=== PATIENT | female | born 1935 | race Caucasian/White ===

== ENCOUNTER 2020-07-03 21:45 | Emergency (ER) | payer MEDICARE, SELFPAY ==
[~2020-07-03] VITALS: Ht 160 cm; Wt 66.7 kg
--- NOTE | 2020-07-03 21:53 | NUR ---
Placed in room 06 . Placed on monitoring coordinator, blood pressure machine and pulse oximeter. To gown for exam. Side rails up.
--- NOTE | 2020-07-03 21:54 | NUR ---
Came in ER this 84 year old female brought by BLS paramedics from [facility], [facility], breathing spontaneously at room air, not in distress noted. With chief complaints of left hip pain an hour ago due to mechanical fall, she slipped in the kitchen tile while walking. Known with Diabetes on Medication. No known allergy. Safety measures in place and ccontinue monitor
[2020-07-03 21:55] VITALS: BP_SYST 183
--- NOTE | 2020-07-03 21:55 | NUR ---
Seen and examined by Dr. Hall, ER Attending, orders carried out
[2020-07-03] MEDS ORDERED: MORPHINE 4 MG/ML INJ. SYRINGE IM ONE (22:00)
[2020-07-03] MEDS ORDERED: FURO-150 PO (22:21)
[2020-07-03] MEDS ORDERED: CYM30 PO (22:21)
[2020-07-03] MEDS ORDERED: ZINC100T2 PO (22:21)
[2020-07-03] MEDS ORDERED: GLU500 PO (22:21)
[2020-07-03] MEDS ORDERED: MIRA25TA PO (22:21)
[2020-07-03] MEDS ORDERED: LOSA50TA3 PO (22:21)
[2020-07-03] MEDS ORDERED: ALEN10TA25 PO (22:21)
[2020-07-03] MEDS ORDERED: LIP20 PO (22:21)
[2020-07-03] MEDS ORDERED: ACET325T PO (22:21)
[2020-07-03] MEDS ORDERED: METO50TA7 PO (22:21)
[2020-07-03] MEDS ORDERED: XALEYE OP (22:21)
[2020-07-03] MEDS ORDERED: ONDA4TAB5 PO (22:21)
[2020-07-03] MEDS ORDERED: LACT10SO6 PO (22:21)
[2020-07-03] MEDS ORDERED: OMEP20CA15 PO (22:21)
--- NOTE | 2020-07-03 22:35 | NUR ---
Covid Imelda swab done and sent to lab
--- NOTE | 2020-07-03 22:40 | NUR ---
Hip/pelvic Xray done at bedside
--- NOTE | 2020-07-03 22:45 | NUR ---
Hip/pelvic Xray shows with Left Intertrochanteric fracture, Dr. Hall made new order and carried out
--- NOTE | 2020-07-03 23:10 | NUR ---
# 20 gauge angiocath placed to cephalic vein. Use of asceptic technique. Opsite placed over site. Blood return noted. Flushed with 10 cc of normal saline. No evidence of infiltration noted. Patient tolerated well.
[2020-07-03 23:14] LABS: BASOPHILS % (AUTO) 0.5 % (0.0-2.0); EOSINOPHILS # (AUTO) 0.1 K/uL (0.0-0.4); EOSINOPHILS % (AUTO) 1.4 % (0.0-4.0); HEMATOCRIT 36.9 % (36-48); HEMOGLOBIN 11.8 g/dL (12.0-16.0); LYMPHOCYTES # (AUTO) 0.8 K/uL (1.0-5.5); LYMPHOCYTES % (AUTO) 13.1 % (20.5-51.5); MEAN CORPUSCULAR HEMOGLOBIN 26 pg (27-31); MEAN CORPUSCULAR HGB CONC 32 % (32-36); MEAN CORPUSCULAR VOLUME 81 fL (79.0-98.0); MONOCYTES # (AUTO) 0.4 K/uL (0.0-1.0); MONOCYTES % (AUTO) 6.1 % (1.7-9.3); NEUTROPHILS % (AUTO) 78.9 % (40.0-70.0); PLATELET COUNT (AUTO) 298 K/uL (130-430); RED BLOOD CELL COUNT(AUTO) 4.59 MIL/uL (4.2-6.2); WHITE BLOOD COUNT (AUTO) 6.3 K/uL (4.8-10.8)
[2020-07-03 23:19] LABS: ANION GAP 10 (5-15); CALCIUM 8.7 mg/dL (8.4-11.0); CHLORIDE 101 mmol/L (98-107); CREATININE 1.12 mg/dL (0.55-1.30); GLUCOSE 172 mg/dL (70-99); POTASSIUM 3.8 mmol/L (3.5-5.1); SODIUM SERUM 141 mmol/L (136-145); UREA NITROGEN, BLOOD 20 mg/dL (8-21)
[2020-07-03 23:24] LABS: PROTHROMBIN TIME 10.3 SECS (9.5-12.5)
[2020-07-03 23:26] LABS: ALANINE AMINOTRANSFERASE 23 U/L (12-78); ALBUMIN 3.5 g/dL (3.4-4.8); ASPARTATE AMINOTRANSFERASE 15 U/L (10-37); TOTAL BILIRUBIN 0.2 mg/dL (0.0-1.0)
--- NOTE | 2020-07-03 23:39 | NUR ---
Chest Xray done at bedside
[2020-07-04] MEDS ORDERED: ONDANSETRON HCL 4 MG/2 ML VIAL IVP ONE (00:45)
[2020-07-04] MEDS ORDERED: fentaNYL CITRATE/PF 100 MCG/2 ML AMP IVP ONE (00:45)
--- NOTE | 2020-07-04 00:50 | NUR ---
# 16 FR Bui catheter with use of sterile technique. Immediate return of 50 cc and urine noted. Bedside drainage bag placed below level of bladder. Urine sample collected and sent to lab. Pt tolerated procedure]. Patient arrived with bui in place, changed due to standard of practice prior to admission. Patient unable to toilet self.
[2020-07-04] MEDS ORDERED: fentaNYL CITRATE/PF 100 MCG/2 ML AMP ONE (00:56)
--- NOTE | 2020-07-04 01:12 | NUR ---
Patient to be transferred to [facility]. Is being transferred due to higher level of care. Receiving facility has accepting physician and available space. ER physician has signed transfer form. Patient or responsible green party has agreed to transfer and signed form. Patient belongings inventoried and will be sent with patient. Copy of nursing notes, lab reports, EKG, Physicians Orders and X-rays to be sent with patient. Report called to DILEEP Parada at receiving facility. Receiving physician is Dr Bronson. [facility] has been called for transfer. ETA 5mins
--- NOTE | 2020-07-04 01:22 | NUR ---
Patients Calvin contacted ,update patient condition and for transfer to [facility].
[2020-07-04 01:31] LABS: BILIRUBIN,URINE NEGATIVE (NEGATIVE); BLOOD, URINE NEGATIVE (NEGATIVE); CLARITY/URINE CLEAR (CLEAR); COLOR,URINE YELLOW (YELLOW); GLUCOSE,URINE NEGATIVE (NEGATIVE); KETONES,URINE TRACE (NEGATIVE); LEUKOCYTE ESTERASE ,URINE NEGATIVE (NEGATIVE); NITRITE, URINE NEGATIVE (NEGATIVE); PH,URINE 6.5 (5.0-8.0); PROTEIN URINE NEGATIVE (NEGATIVE); UROBILINOGEN,URINE 0.2 (0.2-1.0)
[2020-07-04 01:37] VITALS: BP_SYST 163
--- NOTE | 2020-07-04 01:40 | NUR ---
Transferred to [facility] in stable condition accompanied by [facility] ptransport personnel, Summary report packet given.
== END 2020-07-04 01:37 | disposition short-term general hospital (02) ==
LOC: SED 21:45
DX: S72.092A Other fracture of head and neck of left femur, initial encounter for closed fracture (principal); E11.9 Type 2 diabetes mellitus without complications; Z79.899 Other long term (current) drug therapy; Z20.822 Contact with and (suspected) exposure to COVID-19; W01.0XXA Fall on same level from slipping, tripping and stumbling without subsequent striking against object, initial encounter; Y93.89 Activity, other specified; Y92.090 Kitchen in other non-institutional residence as the place of occurrence of the external cause; Y99.8 Other external cause status
CPT/HCPCS: 36415; 51702; 71045; 73502; 80053; 81003; 82962; 83880; 84484; 85025; 85610; 85730; 87426; 93005; 96372; 96374; 96375; 99285; J2270; J2405; J3010

== ENCOUNTER 2021-07-02 10:31 | Emergency (ER) | payer MEDICARE, SELFPAY ==
[~2021-07-02] VITALS: Ht 160 cm; Wt 64.9 kg
[~2021-07-02 10:31] MED LIST: ACET325T PO; ALEN10TA25 PO; CYM30 PO; FURO-150 PO; GLU500 PO; LACT10SO6 PO; LIP20 PO; LOSA50TA3 PO; METO50TA7 PO; MIRA25TA PO; OMEP20CA15 PO; ONDA4TAB5 PO; XALEYE OP; ZINC100T2 PO
--- NOTE | 2021-07-02 10:37 | NUR ---
Patient to ER bed 08 to gown for evaluation. Side rails up.
[2021-07-02 10:38] VITALS: BP_SYST 139
--- NOTE | 2021-07-02 10:40 | NUR ---
Dr Hall evaluating patient at bedside
--- NOTE | 2021-07-02 10:40 | NUR ---
Pt brought by self , A&Ox4, pt presents to ER with tailbone pain after mechanical fall one week ago, no other injuries, skin pink and warm, cap refill <3, VSS,respirations even and unlabored.
--- NOTE | 2021-07-02 11:50 | NUR ---
ASSISTED PT TO BEDSIDE COMMODE, ABLE TO VOID, PLACED BACK ON GURNEY.
--- NOTE | 2021-07-02 12:00 | NUR ---
Patient transported to radiology via WC, accompanied by STAFF.
[2021-07-02 12:42] VITALS: BP_SYST 175
[2021-07-02] MEDS ORDERED: IBUP-2018 PO (13:26)
[2021-07-02] MEDS ORDERED: HYDR-3917 PO (13:26)
--- NOTE | 2021-07-02 15:26 | NUR ---
Patient given written and verbal discharge instructions and verbalizes understanding. ER MD discussed with patient the results and treatment provided. Patient in stable condition. ID arm band removed. NO Rx given. Patient educated on pain management and to follow up with PMD. Pain Scale 0/10. Opportunity for questions provided and answered. Medication side effect fact sheet provided.
--- NOTE | 2021-07-02 15:53 | NUR ---
TRANSPORTATION HERE TO TAKE PT BACK TO [facility]
== END 2021-07-02 15:53 | disposition home or self-care (01) ==
LOC: SED 10:31
DX: S30.0XXA Contusion of lower back and pelvis, initial encounter (principal); E11.9 Type 2 diabetes mellitus without complications; Z79.899 Other long term (current) drug therapy; Z79.84 Long term (current) use of oral hypoglycemic drugs; W18.39XA Other fall on same level, initial encounter; Y93.89 Activity, other specified; Y92.89 Other specified places as the place of occurrence of the external cause; Y99.8 Other external cause status
CPT/HCPCS: 72192-TC; 76376; 99284